=== PATIENT | male | born 1950 | race Two or more races ===

== ENCOUNTER 2024-12-26 13:45 | Emergency (ER) | payer OTHER ==
[~2024-12-26] VITALS: Ht 177.8 cm; Wt 74.8 kg
[2024-12-26 14:36] LABS: PLATELET COUNT (AUTO) 225 K/uL (150-450); RED BLOOD CELL COUNT(AUTO) 5.48 MIL/uL (4.5-6.0); RED CELL DISTRIBUTION WIDTH 12.7 % (11.5-15.0); WHITE BLOOD COUNT (AUTO) 4.8 K/uL (4.3-11.0)
[2024-12-26 14:43] LABS: CALCIUM, SERUM 8.5 mg/dL (8.5-10.1); CREATININE 1.0 mg/dL (0.6-1.3); SODIUM SERUM 143 mmol/L (136-145); UREA NITROGEN, BLOOD 20 mg/dL (7-18)
[2024-12-26] MEDS ORDERED: GABA600T12 PO (15:40)
[2024-12-26] MEDS ORDERED: ROSU10TA2 PO (15:40)
[2024-12-26] MEDS ORDERED: ESZO3TAB39 PO (15:40)
[2024-12-26 17:33] VITALS: BP 138/78; TEMP 98.3; O2SAT 98
== END 2024-12-26 17:15 | disposition home or self-care (01) ==
LOC: ER 13:55
DX: R07.89 Other chest pain (principal); G89.29 Other chronic pain; I10 Essential (primary) hypertension; Z79.899 Other long term (current) drug therapy; Z60.2 Problems related to living alone
CPT/HCPCS: 36415; 71045-TC; 80048-TC; 82962-TC; 84484-TC; 85025-TC